=== PATIENT | female | born 1995 | race Caucasian/White ===

== ENCOUNTER 2021-01-08 09:58 | Inpatient (IN) | payer MEDICAID ==
[2021-01-08] MEDS ORDERED: Carboprost Tromethamine 250 MCG/1 ML Amp IM PRN (10:24)
[2021-01-08] MEDS ORDERED: Methylergonovine 0.2 MG/1 ML Amp IM PRN (10:24)
[2021-01-08] MEDS ORDERED: Lactated Ringers 1,000 ML IV ONE (10:24)
[2021-01-08] MEDS ORDERED: Acetaminophen 325 MG Tab PO PRN ×2 (10:24→19:34)
[2021-01-08] MEDS ORDERED: Lidocaine 1% 30 ML SDV INJECT PRN (10:24)
[2021-01-08] MEDS ORDERED: Misoprostol 400 MCG (4 X 100 MCG TAB) RECTAL PRN (10:24)
[2021-01-08] MEDS ORDERED: Ondansetron 4 MG/2 ML SDV IVPUSH PRN (10:24)
[2021-01-08] MEDS ORDERED: Tranexamic Acid 1,000 MG in Sodium Chloride 0.9% 100 ML IV PRN ×2 (10:24→19:34)
[2021-01-08] MEDS ORDERED: Sodium Chloride 0.9% 10 ML Syringe FLUSH PRN (10:24)
[2021-01-08] MEDS ORDERED: Lactated Ringers 1,000 ML IV SCH (10:30)
[2021-01-08] MEDS: Oxytocin/Normal Saline 30 UNIT/500 ML BAG IV SCH ×2 (15:38→22:14)
[2021-01-08] MEDS ORDERED: Calcium Gluconate 10% 1 GM/10 ML SDV IV PRN (16:27)
[2021-01-08] MEDS ORDERED: Magnesium Sulfate/Water 4 GM in Premix Bag 1 BAG IV ONE (16:27)
[2021-01-08] MEDS ORDERED: Labetalol 20 MG/4 ML Syringe ONE (16:28)
[2021-01-08] MEDS ORDERED: Labetalol 20 MG/4 ML Syringe IVPUSH ONE (16:30)
[2021-01-08] MEDS: Magnesium Sulfate/Water 20 GM/500 ML BAG IV SCH (17:18)
[2021-01-08] MEDS ORDERED: Labetalol 20 MG/4 ML Syringe IVPUSH PRN (17:30)
[2021-01-08] MEDS: Labetalol 20 MG/4 ML Syringe IVPUSH PRN ×2 (17:54→20:18)
[2021-01-08] MEDS ORDERED: Benzocaine/Menthol 20%-0.5% Spray 78 GM Cannister TOP PRN (19:34)
[2021-01-08] MEDS ORDERED: Simethicone 80 MG Tab.Chew PO PRN (19:34)
[2021-01-08] MEDS ORDERED: Oxytocin 10 Units/1 ML SDV IM PRN (19:34)
[2021-01-08] MEDS: Ibuprofen 800 MG Tab PO PRN (23:29)
--- NOTE | 2021-01-09 | DEL ---
DATE: 01/08/2021 PREPROCEDURE DIAGNOSES: 1. 39 and 2/7 weeks based on 8-week ultrasound. 2. History of fast labor and delivery. 3. Residence remote from hospital. 4. Impaired glucose tolerance. 5. Group B strep negative. 6. Maternal anemia of . 7. 2, para 1-0-0-1. 8. Morbid obesity. 9. Preeclampsia. POSTPROCEDURE DIAGNOSES: 1. 39 and 2/7 weeks based on 8-week ultrasound. 2. History of fast labor and delivery. 3. Residence remote from hospital. 4. Impaired glucose tolerance. 5. Group B strep negative. 6. Maternal anemia of . 7. 2, now para 2-0-0-2. 8. Morbid obesity. 9. Preeclampsia. 10.Status post precipitous spontaneous vaginal delivery. BRIEF HISTORY: A 25-year-old female, brought into the hospital today for induction due to her above-listed risk factors and the fact that she has had prior precipitous delivery, lives remote from hospital. After admission had elevated blood pressures. Preeclampsia labs confirmed diagnosis. Uric acid 7.1. Urine protein-to- creatinine ratio 469.9. Otherwise, overall unremarkable. She was started on magnesium sulfate. Induction was performed with Pitocin and AROM and she progressed rapidly. Nurse went in to check on her and found the baby to be , so I was called urgently to the room as there was concern for complications with her being on magnesium sulfate, having some trouble with her prior , and being preeclamptic. DELIVERY DETAILS: With the bed intact, nurse helped guide the head out of the vagina in the OA position over intact perineum. I was in there to help assist with drying, stimulating the baby. Nurse performed mouth and nose bulb suction and baby placed up on mother's abdomen. After a delay, 3-vessel umbilical cord was doubly clamped and cut, and cord blood sample obtained. Placenta then delivered by gentle cord traction and concomitant uterine massage. There were trailing membranes that were gently teased out with ringed forceps. Placenta inspected and intact, there was a central hard calcification 3cm in diameter. Labia and vagina inspected and there were no significant lacerations. A couple of small superficial tears that were hemostatic. Initial brisk bleeding controlled easily with fundal massage and Pitocin running at 500. The patient tolerated the procedure well and she did not have any intrathecal or other pain medicine to my knowledge. COMPLICATIONS: None. Just a fast delivery without time to notify the patient's primary physician. ESTIMATED BLOOD LOSS: 200 mL. FINDINGS: Viable female . Anticipate scores of 8 and 9. weight is 3460g 7# 10oz. DISPOSITION: Mother and baby to stay in the room and continue skin to skin at this time. [facility] /[id number] MTDBecky
--- NOTE | 2021-01-09 00:37 | OBOUT ---
DATE: 01/08/2021 TIME: 11:30 to 11:50. REASON FOR NST: 1. Intrauterine at 39 and 2/7 weeks by 8-3/7 week's ultrasound. 2. History of past labors and deliveries. 3. Lives far from the hospital. 4. Impaired glucose tolerance. 5. GBS negative. 6. Maternal anemia with hemoglobin 10.8 upon admission. 7. Gestational hypertension versus transient hypertension versus preeclampsia, currently being worked up. 8. G2, P1-0-0-1. NST INTERPRETATION: During this time period, heart tone baseline is approximately 125 to 130 and at least two 15 x 15 beats per minute accelerations making this strip reactive as well as reassuring. Tocometer reveals potential 7 contractions during this time period, minimally felt by patient. Blood pressure initially 146/86, heart rate 106, temperature 97.9. ASSESSMENT: 1. Nonstress test - reactive and reassuring. 2. Tocometer with contractions. PLAN: Please see H and P done through [facility] and for this records were called for, reviewed, and supplemented by patient history. Review of systems notable as well and now has elevated blood pressures. PIH panel has been drawn. We will continue to follow clinically and closely at this point in time. We will wait serial blood pressures and we will consider artificial rupture of membranes in the near future. Rapid COVID test has returned negative at this point in time, and we will most likely proceed with artificial rupture of membranes as discussed with patient. [facility] /[id number]
[2021-01-09] MEDS: Ferrous Sulfate 325 MG Tab PO SCH ×3 (01:35→21:24)
[2021-01-09] MEDS: Magnesium Sulfate/Water 20 GM/500 ML BAG IV SCH ×2 (03:20→13:25)
--- NOTE | 2021-01-09 07:48 | PN ---
DATE: 01/08/2021 SUBJECTIVE: The patient feels her contractions occasionally only. OBJECTIVE: heart tones in the 130s. NST has been done prior. Please see previous dictation. She was having contractions every 3 minutes on average during that time. Vaginal exam reveals to be 3+ cm, 85% effaced, -1 station, vertex suspected. Artificial rupture of membranes done after discussion with the patient yielding copious amounts of clear fluid. ASSESSMENT AND PLAN: Intrauterine at 39-2/7 weeks by 8-3/7 weeks ultrasound in a G2, P1-0-0-1 with history of fast labor delivery, lives far from the hospital with impaired glucose tolerance. Maternal anemia with hemoglobin 10.8 upon admission and being worked up for gestational hypertension versus transient hypertension versus preeclampsia. Currently, we will continue to follow clinically and closely. Follow up blood pressures as well. No other signs or symptoms of severe preeclampsia noted with HELLP labs being negative, still waiting on urine, however. [facility] /[id number]
--- NOTE | 2021-01-09 07:49 | PN ---
DATE: 01/08/2021 SUBJECTIVE: The patient denies any headaches, visual changes, or upper abdominal pain. She has been feeling her contractions, felt in the lower abdomen. She is breathing through them currently. Pitocin augmentation has been started. She is at 4 milliunits per minute. OBJECTIVE: Blood pressures did climb into the severe range with systolics in the 160s, 170s. She did have 1 blood pressure of 149/109 as well. PIH panel did return, and urinalysis was notable for ruling in for preeclampsia with over 400 suspected milligrams per 24-hour estimate based on the dipstick and urine protein-creatinine ratio. heart tones in the 120s. Around 4:30, there were 2 accelerations that were excellent, over 15 x 89-laiq-bew-minute accelerations. Tocometer reveals contractions every 2 to 3 minutes apart. Vaginal exam reveals to be 4+ cm, 85% effaced, -1 to -2 station, vertex suspected, and clear fluid emanating from the vaginal orifice. ASSESSMENT: 1. Intrauterine at 39-2/7 weeks by an 8-3/7 weeks' ultrasound, now with a diagnosis of preeclampsia with severe features. Labetalol was started shortly after consistently elevated blood pressures were noted with 20 mg IV given. Last blood pressure was 154/82 with a heart rate of 92. At the current time of dictation, magnesium sulfate was also called for and has currently been given with the 4 g bolus followed by 2 g/h per protocol. 2. History of fast labors and deliveries, lives far from the hospital, with impaired glucose tolerance in a group B streptococcus negative 2, para 1-0-0-1 with maternal anemia with hemoglobin 10.8. PLAN: Magnesium sulfate will be given as above and labetalol as needed for severe blood pressures, I did discuss this with the patient, as well as we will continue Pitocin augmentation and follow clinically and closely. The patient understands and agrees with the above treatment plan. [facility] /[id number]
[2021-01-09] MEDS: Prenatal Multivitamin with Calcium/Folic Acid/Iron Tab PO SCH (08:10)
[2021-01-09] MEDS: Ibuprofen 800 MG Tab PO PRN ×2 (08:10→17:07)
[2021-01-09] MEDS: Docusate Sodium 100 MG Cap PO PRN ×2 (08:10→21:24)
--- NOTE | 2021-01-09 11:13 | PN ---
DATE: 01/09/2021 Status post day #1 for precipitous vaginal delivery. SUBJECTIVE: The patient is doing well. She is still on bedrest for preeclampsia with severe features. She is currently receiving magnesium infusion with reflex checks every hour. She denies any headaches, vision changes, chest pain, shortness of breath, or swelling of her extremities. She is tolerating p.o. intake. The pain is under control with 1 dose of ibuprofen, and bleeding has decreased through the night. OBJECTIVE: Vital Signs: 98.6 degrees Fahrenheit, heart rate 84, respiratory rate 18, systolic blood pressures: 130 to 158 and diastolic: 63 to 81. Lungs: Clear to auscultation bilaterally. Heart: S1, S2. Regular rate and rhythm. Abdomen: Firm uterus through umbilicus. Extremities: No edema noted. LABORATORY DATA: Last magnesium was 4.7. ASSESSMENT: 1. Status post day #1 for precipitous spontaneous vaginal delivery. 2. Maternal anemia, third trimester with admitting hemoglobin of 10.8. 3. Impaired glucose tolerance. 4. Group B Streptococcus negative. 5. G2, now P2-0-0-2. 6. Preeclampsia with severe features. PLAN: We will get CBC and repeat magnesium at 9 a.m. We will stop magnesium and strict bedrest at 24 hours post delivery and follow very closely for signs and symptoms of worsening preeclampsia. The patient was seen by myself and Dr. Marion. Assessment and plan are under advisement of Dr. Marion. I evaluated the patient and agree with the above-[facility] /[id number] MTDD
[2021-01-10] MEDS: Ferrous Sulfate 325 MG Tab PO SCH (08:18)
[2021-01-10] MEDS: Prenatal Multivitamin with Calcium/Folic Acid/Iron Tab PO SCH (08:18)
[2021-01-10] MEDS: Ibuprofen 800 MG Tab PO PRN ×2 (08:18→16:51)
[2021-01-10] MEDS: Docusate Sodium 100 MG Cap PO PRN (08:18)
[2021-01-10] MEDS ORDERED: Labetalol 100 MG Tab PO SCH (16:30)
--- NOTE | 2021-01-10 16:46 | DISCH ---
ADMISSION DIAGNOSES: 1. 39 and 2/7 weeks intrauterine based on 8-week ultrasound. 2. 2, para 1-0-0-1. 3. History of fast labor and delivery. 4. Residence remote from hospital. 5. Anemia of . 6. Impaired glucose tolerance. 7. Blood type A positive, rubella immune, and group B Streptococcus negative. DISCHARGE DIAGNOSES: 1. 39 and 2/7 weeks intrauterine based on 8-week ultrasound. 2. 2, now para 2-0-0-2. 3. History of fast labor and delivery. 4. Residence remote from hospital. 5. Anemia of . 6. Impaired glucose tolerance. 7. Blood type A positive, rubella immune, and group B Streptococcus negative. 8. Preeclampsia. 9. Precipitous vaginal delivery. 10. mother. PROCEDURES: non-stress test, artificial rupture of membranes, Pitocin augmentation, and spontaneous vaginal delivery. BRIEF HISTORY: A 25-year-old female admitted to the hospital for induction of labor due to history of precipitous and living remote from hospital, so that the doctor would be certain to be in attendance and that she would not deliver at home or en route to the hospital. After being induced, her blood pressures became elevated and she ruled in for preeclampsia with a protein- creatinine ratio of 470 mg/g and uric acid elevated at 7.1. Remainder of [facility] labs were unremarkable. Her admission hemoglobin was 10.8, her platelets were 208, so she did not have HELLP syndrome. Her blood pressures, however, were in the severe range, so she was started on magnesium sulfate for seizure prophylaxis and she did require a few doses of IV labetalol for blood pressure protection. She went on to spontaneous vaginal delivery that was quite precipitous. I happened to be sitting in the nurses station when the nurse went to check her for complaint of pelvic pressure and the baby was . She had a rapid delivery with baby in OA position and no complications. Baby did well, score of 8 and 9, weight 3460 g, 7 pounds 11 ounces, and her length 18-1/2 inches. Placenta was intact with a central firm calcification. , she did well. She is . She was kept on bedrest while on the magnesium sulfate and her blood pressures have been well controlled even after that has been discontinued. She is asymptomatic from a preeclampsia standpoint and meeting discharge criteria today and would like to go home this evening when she has been a full 24 hours off magnesium sulfate and we can verify that things are still going well. DISCHARGE CONDITION: Good. PHYSICAL EXAMINATION: Vital Signs: This morning, temperature is 98.2, pulse 86, blood pressure 132/79, respiratory rate of 16, O2 saturations 97% on room air. Last elevated blood pressure was 149/80 at approximately 6 o'clock last evening. HEENT: Unremarkable. Heart: Regular without murmur. Lungs: Clear to auscultation bilaterally. Abdomen: Soft, nontender. Fundus is firm and below the umbilicus. Extremities: 2+ edema. No erythema or tenderness noted. Neurologic: No clonus and equal reflexes. LABORATORY DATA: Hemoglobin 9.9, platelets 206. Urine output has been good, last measure was 700 mL. DISPOSITION: Home with family. MEDICATIONS: vitamin 1 daily, ibuprofen 800 mg every 8 hours as needed for pain, Tylenol 650 mg every 6 hours as needed for pain, iron sulfate 325 mg twice daily, Colace 100 mg twice daily as needed for constipation. FOLLOWUP: She will need a 6-week followup appointment with Dr. Marion. She is to have her blood pressure checked at every appointment that she brings the baby in for the 2-day and 2-week well-checks. INSTRUCTIONS: Sat down and had a long talk with her about preeclampsia and eclampsia. Provided education about what happened with her labor and delivery as well as the education of preeclampsia and its complications can occur even a month out from delivery and that she needs to be alert to those symptoms and come back to the hospital or clinic should any symptoms arise. It would also be advised for her to have a blood pressure cuff at home to check her blood pressures as needed. She was also given routine education for being a mother. Her questions were answered and she is comfortable with the plan. [facility] /[id number]
[2021-01-10] MEDS ORDERED: Labetalol 100 MG Tab ONE (18:59)
[2021-01-10] MEDS ORDERED: Labetalol 100 MG Tab PO ONE (19:09)
== END 2021-01-10 19:10 | disposition home or self-care (01) | DRG 807 ==
LOC: DL.OBCHECK 09:58 → INTOOBSV 14:00 → DL.OB 14:00 → OBSVTOIN 19:14 → DL.OB 19:14
PROVIDERS: ADMIT Family Medicine; ATTEND Family Medicine
PROC: 10E0XZZ Delivery of Products of Conception, External Approach (ICD-10-PCS; principal; 2021-01-08)
PROC: 4A1HXCZ Monitoring of Products of Conception, Cardiac Rate, External Approach (ICD-10-PCS; 2021-01-08)
PROC: 10907ZC Drainage of Amniotic Fluid, Therapeutic from Products of Conception, Via Natural or Artificial Opening (ICD-10-PCS; 2021-01-08)
PROC: 3E033VJ Introduction of Other Hormone into Peripheral Vein, Percutaneous Approach (ICD-10-PCS; 2021-01-08)
DX: O99.02 Anemia complicating childbirth (principal); Z37.0 Single live birth; D64.9 Anemia, unspecified; Z3A.39 39 weeks gestation of pregnancy; O62.3 Precipitate labor; O14.14 Severe pre-eclampsia complicating childbirth; O99.214 Obesity complicating childbirth; E66.01 Morbid (severe) obesity due to excess calories; Z20.822 Contact with and (suspected) exposure to COVID-19
CPT/HCPCS: 36415; 59409; 81003; 82565; 82570; 83615; 83735; 84156; 84450; 84460; 84520; 84550; 85027; A9270-GY; J2590; J3475; J3490; J7120; U0002

== ENCOUNTER 2022-01-30 10:54 | Emergency (ER) | payer MEDICAID ==
[2022-01-30] MEDS ORDERED: Ondansetron 4 MG/2 ML SDV IVPUSH ONE (11:30)
[2022-01-30] MEDS ORDERED: Ketorolac 30 MG/ML SDV IVPUSH ONE (12:07)
[2022-02-23 13:43] LABS: ANION GAP 15.9 mEq/L (7-13); CHLORIDE,CL 102 mmol/L (98-107); ESTIMATED GFR 90 mL/min (>=60); SODIUM,NA 140 mmol/L (136-145)
== END 2022-01-30 12:25 | disposition home or self-care (01) ==
LOC: DL.ED 10:54
DX: N39.0 Urinary tract infection, site not specified (principal); N76.0 Acute vaginitis
CPT/HCPCS: 36415; 80053; 81001; 83605; 85025; 86140; 96374; 96375; 99283-25

== ENCOUNTER 2024-01-05 08:22 | Emergency (ER) | payer MEDICAID ==
[2024-01-05 09:08] LABS: BASOPHILS PERCENT AUTO 0.2 % (0.0-1.0); EOSINOPHILS PERCENT AUTO 0.1 % (1.0-3.0); HEMATOCRIT 44.3 % (37.0-47.0); LYMPHOCYTES PERCENT AUTO 7.8 % (20.5-50.1); MEAN CORPUSCULAR HEMOGLOBIN 31.1 pg (27.0-34.0); MEAN CORPUSCULAR HGB CONC 33.9 g/dL (33.0-35.0); MEAN CORPUSCULAR VOLUME 91.9 fL (80-100); MONOCYTES PERCENT AUTO 3.1 % (2-8); NEUTROPHILS PERCENT AUTO 88.8 % (42.2-75.2); PLATELET COUNT,PLT 261 10^3/uL (150-450); RED BLOOD CELL COUNT 4.82 10^6/uL (4.2-5.4); WHITE BLOOD CELL COUNT,WBC 11.1 10^3/uL (5.0-10.0)
[2024-01-05] MEDS: Ondansetron 4 MG/2 ML SDV IVPUSH ONE (09:10)
[2024-01-05] MEDS: fentaNYL 100 MCG/2 ML SDV IVPUSH ONE ×2 (09:11→10:59)
[2024-01-05 09:23] LABS: A/G RATIO 1.1; ALANINE AMINOTRANSFERASE,ALT 48 U/L (14-59); ALBUMIN 4.6 g/dL (3.4-5.0); ALKALINE PHOSPHATASE 62 U/L (46-116); ANION GAP 12.9 mEq/L (7-13); ASPARTATE AMNIOTRANSFERASE,AST 17 U/L (15-37); BILIRUBIN TOTAL 0.4 mg/dL (0.2-1.0); BLOOD UREA NITROGEN,BUN 12 mg/dL (7-18); BUN/CREATININE RATIO 12.9 (No establ ref range); CARBON DIOXIDE,CO2 28 mmol/L (21-32); CHLORIDE,CL 102 mmol/L (98-107); CREATININE 0.93 mg/dL (0.55-1.02); GLUCOSE RANDOM 129 mg/dL (70-99); LIPASE 31 U/L (16-77); MAGNESIUM 1.9 mg/dL (1.8-2.4); POTASSIUM,K 3.9 mmol/L (3.5-5.1); PROTEIN TOTAL,TP 8.7 g/dL (6.4-8.2); SODIUM,NA 139 mmol/L (136-145)
[2024-01-05 09:24] LABS: ESTIMATED GFR 85 mL/min (>=60)
[2024-01-05 10:37] LABS: APPEARANCE,URINE CLOUDY (CLEAR); BILIRUBIN,URINE NEGATIVE (NEGATIVE); COLOR,URINE YELLOW (YELLOW); GLUCOSE,URINE NEGATIVE (NEGATIVE); KETONES,URINE NEGATIVE (NEGATIVE); LEUKOCYTE ESTERASE,URINE NEGATIVE (NEGATIVE); NITRITE,URINE NEGATIVE (NEGATIVE); OCCULT BLOOD,URINE TRACE-INTACT (NEGATIVE); PROTEIN,URINE NEGATIVE (NEGATIVE); UROBILINOGEN,URINE 0.2 mg/dL (0.2-1.0)
[2024-01-05 10:47] LABS: AMORPHOUS SEDIMENT,URINE MANY /HPF (NOT SEEN); BACTERIA,URINE FEW /HPF (0-FEW/HPF); EPITHELIAL CELLS,URINE FEW /HPF (NOT SEEN); RBC,URINE 0-5 /HPF (0-5); WBC,URINE 0-5 /HPF (0-5/HPF)
[2024-01-05] MEDS: Lactated Ringers 1,000 ML IV SCH (10:58)
[2024-01-05] MEDS: Iopamidol 612 MG/ML 100 ML Bottle IVPUSH ONE (11:04)
[2024-01-05] MEDS: Acetaminophen/HYDROcodone 325-5 MG Tab PO ONE (13:08)
[2024-01-05] MEDS: GI Cocktail Oral Solution 30 ML PO ONE (13:09)
== END 2024-01-05 13:22 | disposition home or self-care (01) ==
LOC: DL.ED 08:22
DX: K80.20 Calculus of gallbladder without cholecystitis without obstruction (principal); K80.50 Calculus of bile duct without cholangitis or cholecystitis without obstruction; Z91.048 Other nonmedicinal substance allergy status; Z79.899 Other long term (current) drug therapy
CPT/HCPCS: 36415; 74178; 76705; 80053; 81001; 81025; 83690; 83735; 85025; 96361; 96374; 96375; 96376; 99284; 99284-25; A9270-GY; J2405; J3010; J7120; Q9967